=== PATIENT | male | born 1955 ===

== ENCOUNTER 2024-07-10 13:23 | Outpatient (CLI) | payer MEDICARE, SELFPAY ==
--- NOTE | ~2024-07-10 | PE_ITS ---
EXAMINATION: PET_PETPSMAST_PT DATE: 07/10/2024 15:42 INDICATION: Prostate cancer TECHNIQUE: 5.191 mCi of Illucix Ga-[id number]) was administered i.v. Low dose computed kevin graphy (CT) images were acquired from the base of the brain to the base of the brain to the proximal thighs for attenuation correction and anatomic localization. Positron emission tomography (PET) image s were acquired in the same distribution beginning 86 minutes after injection. Images including fused PET/CT images were reconstructed in axial, coronal, and sagittal planes. Automated exposure control technique was employed. The dose-length product was 1360.74mGy-cm. COMPARISON: None FINDINGS: Head/neck: Typical pattern of symmetric physiologic increased activity in the lacrimal, parotid and submandibula r glands as well as along the mucosa of the nasal and oral cavities, pharynx and hypopharynx. No path ologically enlarged cervical lymphadenopathy or suspicious foci of increased uptake in the visualized head or neck. Chest: Mild biapical pleural-parenchymal scarring. There are mild patchy groundglass opacities at the basila r right lower lobe and tree-in-bud opacities in the posterior right middle lobe, both without PSMA ac tivity consistent with pneumonia. No pleural effusion. Heart size is normal. Atherosclerotic coronary artery calcifications. No pericardial effusion. Thoracic aorta is normal in caliber. No pathological ly enlarged or PSMA avid thoracic lymphadenopathy. Abdomen/pelvis/proximal thighs: Physiologic renal accumulation and excretion of activity in the kidneys, bladder and along portions o f ureters. Mild prostatomegaly measuring 4.3 x 3.5 cm. There are a couple foci of increased uptake, t he larger and more intense focus measuring approximately 1.5 cm diameter at the inferior prostate sli ghtly to the right of midline with maximal SUV of 6.1 and a smaller approximately 1 cm focus more cep halad at the right posterolateral aspect of the prostate with maximal SUV of 5.5. Normal degree and s lightly heterogenous pattern of increased uptake throughout the liver and spleen without radiologic c orrelate or dominant PSMA avid lesion. The gallbladder, pancreas and bilateral adrenal glands are nor mal. Moderate uptake scattered throughout the bowels with typical duodenal and proximal jejunal predo minance and without radiologic correlate, also likely physiologic. Normal appendix. No other abnormal foci of increased uptake or pathologically enlarged lymphadenopathy in the abdomen, pelvis or proxim al thighs. Musculoskeletal: Moderate cervical, mild thoracic and moderate to severe lumbar spondylosis. No suspicious lytic, tara tic or PSMA abdomen bone lesions. IMPRESSION: 1. A couple foci of mild increased PSMA activity in the prostate consistent with reported biopsy-prov en primary prostate cancer. No lesion suspicious for metastatic disease. 2. Patchy groundglass opacities in the basilar right lower lobe and mild tree-in-bud opacities in the dependent right middle lobe which are suspicious for pneumonia. Reviewed, dictated and finalized at [facility] IMPRESSION: 1. A couple foci of mild increased PSMA activity in the prostate consistent wit h reported biopsy-proven primary prostate cancer. No lesion suspicious for meta static disease. 2. Patchy groundglass opacities in the basilar right lower lobe and mild tree-i n-bud opacities in the dependent right middle lobe which are suspicious for pne umonia.
== END 2024-07-10 13:24 | disposition home or self-care (01) ==
LOC: ANHIMG 13:25
PROVIDERS: Visit Provider Urology
DX: C61 Malignant neoplasm of prostate (principal); R91.8 Other nonspecific abnormal finding of lung field
CPT/HCPCS: 78815; A9596